=== PATIENT | female | born 2000 ===

== ENCOUNTER 2021-07-15 16:53 | Emergency (ER) | payer MEDICAID ==
[~2021-07-15] VITALS: Ht 149.9 cm; Wt 63.5 kg
[2021-07-15 17:48] VITALS: BP 139/96
== END 2021-07-15 18:49 | disposition home or self-care (01) ==
LOC: ER 16:53
DX: O26.891 Other specified pregnancy related conditions, first trimester (principal); S20.369A Insect bite (nonvenomous) of unspecified front wall of thorax, initial encounter; Z3A.01 Less than 8 weeks gestation of pregnancy; W57.XXXA Bitten or stung by nonvenomous insect and other nonvenomous arthropods, initial encounter; Y93.89 Activity, other specified; Y92.89 Other specified places as the place of occurrence of the external cause; Y99.8 Other external cause status